=== PATIENT | female | born 1940 | race Caucasian/White ===

== ENCOUNTER 2018-03-10 14:53 | Outpatient (CLI) | payer MEDICARE ==
--- NOTE | 2018-03-10 15:50 | XRAY Report ---
Procedure Date: 03/10/2018 Accession Number: [id number] / [id number] Procedure: XRN - Abdomen 2 View X-Ray CPT Code: 20767 FULL RESULT: EXAM: ABDOMEN RADIOGRAPHY EXAM DATE: 03/10/2018 03:13 PM. CLINICAL HISTORY: Abdominal pain. Constipation. COMPARISON: None. TECHNIQUE: 2 views. FINDINGS: Lung Bases: Unremarkable. Bowel Gas Pattern: Within normal limits. No dilated loops or abnormal fluid levels. Mild stool retention. Free Air: None. Other: Dextroscoliosis and degenerative lumbar disk disease. Cholecystectomy clips noted. Vaginal ring noted. IMPRESSION: No bowel obstruction or free air. Mild stool retention. RADIA
== END 2018-03-10 14:54 | disposition home or self-care (01) ==
LOC: DI.N 14:53
PROVIDERS: ATTEND Nurse Practitioner
DX: R10.9 Unspecified abdominal pain (principal)
CPT/HCPCS: 74019

== ENCOUNTER 2018-03-28 07:46 | Emergency (ER) | payer MEDICARE, OTHER ==
[2018-03-28 08:12] VITALS: BP 145/96
[2018-03-28 08:44] LABS: BASOPHILS # (AUTO) 0.1 10^3/uL (0.0-0.1); BASOPHILS % (AUTO) 1.3 %; EOSINOPHILS # (AUTO) 0.2 10^3/uL (0.0-0.7); EOSINOPHILS % (AUTO) 3.1 %; HGB - HEMOGLOBIN 13.8 g/dL (12.0-16.0); LYMPHOCYTES % (AUTO) 12.8 %; MEAN CORPUSCULAR HEMOGLOBIN 27.3 pg (27.0-31.0); MEAN CORPUSCULAR HGB CONC 33.5 g/dL (32.0-36.0); MEAN CORPUSCULAR VOLUME 81.7 fL (81.0-99.0); MEAN PLATELET VOLUME 6.8 fL (7.9-10.8); MONOCYTES # (AUTO) 0.5 10^3/uL (0.0-1.0); MONOCYTES % (AUTO) 6.2 %; NEUTROPHILS # (AUTO) 6.2 10^3/uL (1.5-6.6); NEUTROPHILS % (AUTO) 76.6 %; PLT - PLATELET COUNT 180 10^3/uL (130-450); RED BLOOD COUNT 5.07 10^6/uL (4.20-5.40); RED CELL DISTRIBUTION WIDTH 14.8 % (12.0-15.0)
[2018-03-28 08:58] LABS: ALBUMIN 4.4 g/dL (3.2-5.5); ALBUMIN/GLOBULIN RATIO 1.7 (1.0-2.2); BILIRUBIN,TOTAL 0.8 mg/dL (0.2-1.0); CALCIUM 9.4 mg/dL (8.5-10.3); CREATININE 0.7 mg/dL (0.4-1.0)
--- NOTE | 2018-03-28 12:06 | ED Physician Documentation ---
PD HPI ABD PAIN - Stated complaint Stated Complaint: ABD PX - Chief complaint Chief Complaint: Abd Pain - History obtained from History obtained from: Patient, Family - History of Present Illness Timing - onset: How many weeks ago (4) Timing - duration: Weeks (4) Timing - details: Gradual onset Pain level max: 8 Pain level now: 8 Quality: Aching, Pain Location: All over / everywhere Radiation: No: Chest, , Lower back, Left flank, Left shoulder, Right flank, Right shoulder, Upper back Improved by: Other (nothing) Worsened by: Other (nothing) Associated symptoms: Nausea (occasional), Constipation (states feels constipated , but had diarrhea a few weeks ago. Still having normal bowel movement.). No: Fever, Vomiting, Hematemesis, Diarrhea, Melena, Hematochezia, Dysuria, Hematuria , Chest pain, Dizzy, Near syncope / syncope, Loss of appetite, Weight loss, Vaginal bleeding, Vaginal dc Recently seen: Clinic (seen in clinic, dx with constipation. states doesn't feel better.) Review of Systems Ten Systems: 10 systems reviewed and negative Constitutional: denies: Fever, Chills Ears: denies: Ear pain Nose: denies: Rhinorrhea / runny nose, Congestion Respiratory: denies: Cough GI: denies: Hematemesis, Bloody / black stool : denies: Dysuria Skin: denies: Rash Musculoskeletal: denies: Neck pain, Back pain Neurologic: denies: Headache PD PAST MEDICAL HISTORY - Past Medical History Past Medical History: Yes Cardiovascular: Hypertension - Past Surgical History Past Surgical History: No - Present Medications Home Medications: Ambulatory Orders Medication Instructions Recorded Confirmed Levothyroxine [Synthroid] 75 mcg PO DAILY 08/19/14 08/19/14 Losartan [Cozaar] 50 mg PO BID 08/19/14 08/19/14 Metoprolol Succinate [Toprol Xl] 50 mg PO BID 08/19/14 08/19/14 Cephalexin [Keflex] 500 mg PO Q6H #28 capsule 03/28/18 - Allergies Allergies/Adverse Reactions: Allergies Allergy/AdvReac Type Severity Reaction Status Date / Time chlorpromazine Allergy Mild Hives Verified 03/28/18 08:13 [From Thorazine] diazepam [From Valium] Allergy Mild Unknown Verified 03/28/18 08:13 haloperidol [From Haldol] Allergy Mild Unknown Verified 03/28/18 08:12 - Living Situation Living Situation: reports: With family Living Arrangement: reports: At home - Social History Does the pt smoke?: No Does the pt have substance abuse?: No - Family History Family history: reports: Non contributory PD ED PE NORMAL - Vitals Vital signs reviewed: Yes - General General: Alert and oriented X 3, No acute distress, Well developed/nourished - HEENT HEENT: PERRL, Moist mucous membranes - Neck Neck: Supple, no meningeal sign - Cardiac Cardiac: RRR, Strong equal pulses - Respiratory Respiratory: No respiratory distress, Clear bilaterally - Abdomen Abdomen: Soft, Non tender, Non distended - Back Back: No CVA TTP, No spinal TTP - Derm Derm: Warm and dry - Extremities Extremities: No edema, No calf tenderness / cord - Neuro Neuro: Alert and oriented X 3 - Psych Psych: Normal mood, Normal affect Results - Vitals Vitals: Vital Signs - 24 hr 03/28/18 08:07 Temperature 36.9 C Heart Rate 87 Respiratory 16 Rate Blood Pressure 145/96 H O2 Saturation 97 Oxygen O2 Source Room air - Labs Labs: Laboratory Tests 03/28/18 03/28/18 03/28/18 08:39 08:39 11:50 WBC 8.0 RBC 5.07 Hgb 13.8 Hct 41.4 MCV 81.7 MCH 27.3 MCHC 33.5 RDW 14.8 Plt Count 180 MPV 6.8 L Neut # (Auto) 6.2 Lymph # (Auto) 1.0 L [place] # (Auto) 0.5 Eos # (Auto) 0.2 Baso # (Auto) 0.1 Absolute Nucleated RBC 0.00 Nucleated RBC % 0.0 Sodium 136 Potassium 3.3 L Chloride 96 L Carbon Dioxide 31 Anion Gap 9.0 BUN 13 Creatinine 0.7 Estimated GFR (MDRD) 81 L Glucose 134 H Calcium 9.4 Total Bilirubin 0.8 AST 23 ALT 16 Alkaline Phosphatase 60 Total Protein 7.0 Albumin 4.4 Globulin 2.6 Albumin/Globulin Ratio 1.7 Lipase 36 Urine Color LIGHT YELLOW Urine Clarity HAZY Urine pH 7.0 Ur Specific [place] 1.010 Urine Protein TRACE Urine Glucose (UA) NEGATIVE Urine Ketones NEGATIVE Urine Occult Blood MODERATE H Urine Nitrite NEGATIVE Urine Bilirubin NEGATIVE Urine Urobilinogen 0.2 (NORMAL) Ur Leukocyte Esterase MODERATE H Urine RBC 0-5 Urine WBC >25 H Ur Squamous Epith Cells FEW Squamous Urine Bacteria Many H Ur Microscopic Review INDICATED Urine Culture Comments INDICATED - Rads (name of study) CT abd/pelvis Radiology: Prelim report reviewed, EMP read contemporaneously, See rad report ( Moderate bladder distention with possible mild diffuse bladder wall thickening. Cystitis could be considered in the appropriate clinical setting. 2. Colonic diverticulosis without evidence of diverticulitis. 3. Chronic and postoperative findings, as above. ) PD MEDICAL DECISION MAKING - ED course Complexity details: reviewed results, re-evaluated patient, considered differential, d/w patient, d/w family ED course: Patient is a 77-year-old female with abdominal pain today. No acute laboratory findings or findings on CT scan to explain her symptoms. She does have a UTI and will treat for this. She is well-appearing, nontoxic. Tolerating p.o. without difficulty. Ambulating well. Abdomen is soft, nontender nondistended on serial exam. Patient counseled regarding signs and symptoms for which I believe and urgent re-evaluation would be necessary. Patient with good understanding of and agreement to plan and is comfortable going home at this time This document was made in part using voice recognition software. While efforts are made to proofread this document, sound alike and grammatical errors may occur. - Sepsis Event Vital Signs: Vital Signs - 24 hr 03/28/18 08:07 Temperature 36.9 C Heart Rate 87 Respiratory 16 Rate Blood Pressure 145/96 H O2 Saturation 97 Oxygen O2 Source Room air Departure - Departure Disposition: 01 Home, Self Care Clinical Impression: Urinary tract infection Qualifiers: Urinary tract infection type: acute cystitis Hematuria presence: without hematuria Qualified Code(s): N30.00 - Acute cystitis without hematuria Condition: Good Instructions: ED Abdominal Pain Unkn Cause, ED UTI Cystitis Female Follow-Up: Rosy Betancourt DNP [Primary Care Provider] - Within 1 week Prescriptions: Cephalexin [Keflex] 500 mg PO Q6H #28 capsule Comments: Your tests are normal today, other than a bladder infection. Take all antibiotics until gone. Return if you worsen. Discharge Date/Time: 03/28/18 13:42
[2018-03-28] MEDS ORDERED: IOPAMIDOL-300 100 ML VIAL ONE (12:09)
[2018-03-28] MEDS ORDERED: IOPAMIDOL-300 100 ML VIAL IVP ONE (12:54)
[2018-03-28 12:59] LABS: BILIRUBIN,URINE NEGATIVE (NEGATIVE); GLUCOSE, URINE (UA) NEGATIVE (NEGATIVE); KETONES,URINE (UA) NEGATIVE (NEGATIVE); LEUKOCYTE ESTERASE, URINE MODERATE (NEGATIVE); NITRITE,URINE NEGATIVE (NEGATIVE); OCCULT BLOOD,URINE MODERATE (NEGATIVE); PROTEIN,URINE TRACE mg/dL (NEGATIVE); UROBILINOGEN,URINE 0.2 (NORMAL) E.U./dL (NORMAL)
[2018-03-28 13:00] LABS: CLARITY,URINE HAZY (CLEAR)
--- NOTE | 2018-03-28 13:01 | CT Report ---
Reason: diffuse abd pain Procedure Date: 03/28/2018 Accession Number: [id number] / [id number] Procedure: CT - Abdomen/Pelvis W/ CPT Code: FULL RESULT: EXAM: CT ABDOMEN AND PELVIS EXAM DATE: 03/28/2018 12:37 PM. CLINICAL HISTORY: Diffuse abd pain. COMPARISONS: None. TECHNIQUE: Routine helical CT imaging was performed through the abdomen and pelvis. IV contrast: ISOVUE 300 100mL. Enteric contrast: No. Reconstructions: Coronal and sagittal. In accordance with CT protocol optimization, one or more of the following dose reduction techniques were utilized for this exam: automated exposure control, adjustment of mA and/or KV based on patient size, or use of iterative reconstructive technique. FINDINGS: Lung Bases: Unremarkable. Minimal pericardial effusion. Liver: Normal. No masses. Gallbladder/Bile Ducts: Status post cholecystectomy. No ductal dilatation. Spleen: Normal. Pancreas: Normal. Adrenal Glands: Normal. Kidneys: 1.5 cm left renal cyst. Additional subcentimeter bilateral renal hypodensities likely represent cysts although they are too small to definitely characterize. No definite masses. No hydronephrosis, hydroureter or perinephric stranding. Peritoneal Cavity/Bowel: No free air, free fluid or chetan lymphadenopathy. The appendix is not clearly visualized but there are no findings suspicious for appendicitis. There is substantial colonic diverticulosis without evidence of diverticulitis. Pelvic Organs: Moderate bladder distention with the pattern of possible mild diffuse bladder wall thickening which could be chronic. Cystitis is not excluded. No mass or stones. The visualized pelvic organs otherwise are unremarkable. A pelvic pessary is present. Vasculature: No aneurysms or other significant abnormality. Bones: No definite acute abnormality. Dextroconvexity lumbar scoliosis and degenerative disease. Other: None. IMPRESSION: 1. Moderate bladder distention with possible mild diffuse bladder wall thickening. Cystitis could be considered in the appropriate clinical setting. 2. Colonic diverticulosis without evidence of diverticulitis. 3. Chronic and postoperative findings, as above. RADIA
[2018-03-28 13:10] LABS: RBC,URINE 0-5 /HPF (0-5); SQUAMOUS EPITHELIAL CELL,UR FEW Squamous (<= Few)
[2018-03-28 13:11] LABS: BACTERIA,URINE Many /HPF (None Seen)
== END 2018-03-28 13:42 | disposition home or self-care (01) ==
LOC: ED 07:46
DX: N30.00 Acute cystitis without hematuria (principal); R10.9 Unspecified abdominal pain; K57.30 Diverticulosis of large intestine without perforation or abscess without bleeding; I10 Essential (primary) hypertension
CPT/HCPCS: 36415; 74177; 80053; 81001; 83690; 85025; 87086; 87181; 99283; Q9967; 81003

== ENCOUNTER 2018-04-21 09:51 | Outpatient (CLI) | payer MEDICARE, OTHER ==
[2018-04-21] MEDS ORDERED: ALBUTEROL NEB 2.5 MG/3 ML INH ONE (12:00)
== END 2018-04-21 09:52 | disposition home or self-care (01) ==
LOC: RT 09:51
PROVIDERS: ATTEND Nurse Practitioner
DX: J45.30 Mild persistent asthma, uncomplicated (principal)
CPT/HCPCS: 94060

== ENCOUNTER 2025-06-06 20:44 | Inpatient (IN) ==
--- NOTE | 2025-06-06 20:53 | ED Physician Documentation ---
History of Present Illness Stated complaint Stated Complaint: RT SIDE WEAKNESS, SLURRED SPEECH Chief complaint Chief Complaint: Neuro History obtained from History obtained from: Patient Additonal information Additional information: 85yF with pmh htn, asthma p/w RUE and RLE weakness starting around 0048 today (a little after midnight last night) with waxing and waning severity. also with baseline slurred speech that may be worse today per ems. patient normally takes losartan 50mg in evenings but did not take tonight. denies cp, soa, n/v vision changes headache confusion. Meds/Allgy Home Medications Ambulatory Orders Medication Instructions Recorded Confirmed levothyroxine 75 mcg tablet 75 mcg PO DAILY 08/19/14 0 08/19/14 losartan 50 mg tablet 50 mg PO BID 08/19/14 metoprolol succinate 50 mg 50 mg PO BID 08/19/1408/19 tablet,extended release 24 hr cephalexin 500 mg capsule (Keflex) 500 mg PO Q6H ##28 03/28/18 albuterol sulfate .ROUTE 06/06/25 budesonide .ROUTE 06/06/25 Allergies Allergies Allergy/AdvReac Type Severity Reaction Status Date / Time chlorpromazine (From Allergy Mild Hives Verified 06/06/25 20:51 Thorazine) diazepam (From Valium) Allergy Mild Unknown Verified 06/06/25 20:51 haloperidol (From Haldol) Allergy Mild Unknown Verified 06/06/25 20:51 ciprofloxacin Allergy Unknown Verified 06/06/25 20:51 levofloxacin (From Levaquin) Allergy Unknown Verified 06/06/25 20:51 lisinopril Allergy Unknown Verified 06/06/25 20:51 naproxen Allergy unknown Verified 06/06/25 20:51 propoxyphene (From Darvon) Allergy unknown Verified 06/06/25 20:51 thioridazine (From Mellaril) Allergy unknown Verified 06/06/25 20:51 PFSH Active Problems All Active Problems (Updated 06/06/25 @ 21:09 by Yuliya Godfrey MD) HTN (hypertension) (Chronic) Acute CVA (cerebrovascular accident) (Acute) Urinary tract infection (Acute) Social History Social History Do you dip or chew tobacco?: No Living arrangement: At home Living Condition: With family How many days per week?: 3 Do you feel safe in your home environment?: Yes History of physical, verbal, emotional, or financial abuse?: No Exam Exam Vital Signs: Vital Signs x48h Temp Pulse Resp BP Pulse Ox 06/06/25 20:46 36.4 C L 92 20 211/153 H 95 Constitutional normal general appearance, no apparent distress and average body habitus elderly appearing HENMT normocephalic, head/scalp atraumatic and oropharynx normal Eyes PERRL and EOMs intact bilaterally Neck/C-Spine visual inspection normal Chest inspection of chest normal Respiratory breath sounds equal bilaterally, normal respiratory effort and clear to auscultation bilaterally Cardiovascular normal heart rate noted and regular rhythm noted Gastrointestinal abdomen normal to inspection, abdomen soft to palpation and nontender to palpation Neurology stock grader II-XII intact and GCS 15 RUE 1+ drift against gravity. RLE with significant drift to gravity. NIHSS 2 (RUE -1 , RLE -1 ) Psychiatry oriented x3 Results Vitals Vitals: Vital Signs - 24 hr 06/06/25 20:46 06/06/25 21:40 Temperature 36.4 C L Temperature Source Temporal Artery Scan Pulse Rate 92 Respiratory Rate 20 Blood Pressure 211/153 H O2 Saturation 95 Oxygen Delivery Method Room Air O2 Source Room air Pain Intensity 0 Oxygen O2 Source Room air EKG (time done) 2053: EKG releavant findings:: EKG personally interpreted by author of this note. Relevant findings are: Rate: Rate (enter#) (85) Rhythm: NSR [place]: Other (LAFB) Intervals: Prolonged RI (214) QRS: QRS normal Ischemia: No ST elevation c/w ischemia Labs Labs: Laboratory Tests 06/06/25 20:01 WBC 5.8 RBC 5.44 H Hgb 14.5 Hct 46.4 MCV 85.3 MCH 26.7 L MCHC 31.3 L RDW 13.2 Plt Count 204 MPV 9.4 Neut # (Auto) 3.8 Lymph # (Auto) 1.3 L [place] # (Auto) 0.4 Eos # (Auto) 0.2 Baso # (Auto) 0.0 Absolute Nucleated RBC 0.00 Nucleated RBC % 0.0 Sodium 138 Potassium 3.6 Chloride 102 Carbon Dioxide 28 Anion Gap 8.0 BUN 20 Creatinine 0.8 Estimated GFR (MDRD) 68 L Glucose 153 H Calcium 9.6 Total Bilirubin 0.8 AST 17 ALT 12 Alkaline Phosphatase 57 Total Protein 7.3 Albumin 4.6 Globulin 2.7 Albumin/Globulin Ratio 1.7 Lipase 19 PD Medical Decision Making ED course ED course: 85yF p/w RUE / RLE weakness starting a little after midnight this past evening, waxing/waning severity, now improved. no other objective neurological deficits. hypetensive on arrival. NIHSS 2. not a tenecteplase candidate given improving symptoms, low NIHSS and outside the 4.5 hour window. CTA undertaken to evaluate for LVO. likely will admit [facility] for MRI, telemetry, possible echo for stroke workup. d/w Dr. Dinero re: ct head no acute findings. 9:30pm. No LVO on CTA therefore plan to admit here for CVA workup including MRI in am. Discharge Plan Discharge Patient Disposition: 66 [facility] DC/Xfer Condition: Fair Clinical Impression: Acute CVA (cerebrovascular accident), HTN (hypertension) Prescriptions: No Action levothyroxine 75 MCG tablet 75 mcg PO DAILY metoprolol succinate 50 MG tablet extended release 24 hr 50 mg PO BID losartan 50 MG tablet 50 mg PO BID cephalexin [Keflex] 500 MG capsule 500 mg PO Q6H Qty: 28 0RF budesonide .ROUTE albuterol sulfate .ROUTE Print Language: Thai
[2025-06-06 21:08] LABS: HCT - HEMATOCRIT 46.4 % (37.0-47.0); HGB - HEMOGLOBIN 14.5 g/dL (12.0-16.0); MEAN PLATELET VOLUME 9.4 fL (7.9-10.8); NRBC ABSOLUTE COUNT (AUTO) 0.00 x10^3/uL; NUCLEATED RED BLOOD CELLS AUTO 0.0 /100WBC; PLT - PLATELET COUNT 204 10^3/uL (130-450); RED CELL DISTRIBUTION WIDTH 13.2 % (12.0-15.0)
[2025-06-06 21:24] LABS: ALT ALANINE AMINOTRANSFERASE 12.0 IU/L (10-60); AST ASPARTATE AMINOTRANSFERASE 17.0 IU/L (10-42); BUN - BLOOD UREA NITROGEN 20.0 mg/dL (6-20); CARBON DIOXIDE - CO2 28.0 mmol/L (21-32); CREATININE 0.8 mg/dL (0.6-1.3); GFR - MDRD 68.0 (>89)
--- NOTE | 2025-06-06 21:27 | XRAY Report ---
PROCEDURE: XR Chest 1V INDICATIONS: Chest Pain TECHNIQUE: One view of the chest was acquired. COMPARISON: None. FINDINGS: Surgical changes and devices: None. Lungs and pleura: No pleural effusions or pneumothorax. No consolidation. Mediastinum: Mediastinal contours appear normal. Heart size is normal. Bones and chest wall: No suspicious bony lesions. Overlying soft tissues appear unremarkable. IMPRESSION: No acute cardiopulmonary process. Reviewed by: Ashkan Sanchez MD on 06/06/2025 9:23 PM [facility] Approved by: Ashkan Sanchez MD on 06/06/2025 9:23 PM PST Station ID: [email or web address]
[2025-06-06] MEDS: LABETALOL 20 MG/4 ML SYRINGE IVP STA (21:28)
[2025-06-06] MEDS: SODIUM CHLORIDE 0.9% 500 ML IV ONE (21:30)
--- NOTE | 2025-06-06 21:33 | CT Report ---
PROCEDURE: CT Head W/O Stroke Protocol INDICATIONS: RUE/RLE weak TECHNIQUE: Noncontrast angled axial sections acquired from the foramen magnum to the vertex, with coronal reformats. For radiation dose reduction, the following was used: automated exposure control, adjustment of mA and/or kV according to patient size. COMPARISON: None. FINDINGS: Image quality: Diagnostic. CSF spaces: Basal cisterns are patent. No extra-axial fluid collections. Ventricles are normal in size and shape. Brain: No midline shift. No intracranial masses or hemorrhage. No mass effect. Yo-white matter interface is normal. There is moderate cerebral volume loss for age with resultant ventricular and sulcal prominence. There are moderate periventricular and deep white matter chronic small vessel ischemic changes. Atherosclerotic calcifications are noted in the intracranial segments of the bilateral internal carotid arteries. Skull and face: Calvarium and visualized facial bones are intact, without suspicious lesions. Sinuses: Scattered ethmoid and bilateral maxillary sinus mucosal thickening. Mastoid air cells are clear. IMPRESSION: No acute intracranial abnormality seen. Moderate age-related senescent changes and sequela of chronic small vessel ischemic disease. Scattered ethmoid and bilateral maxillary sinus disease. Findings were discussed with ordering provider (Dr. Godfrey) on 06/06/2025 at 2127 hours. This study fulfills neurological imaging criteria for inclusion or exclusion of acute stroke therapies based on available published neurological imaging guidelines. Reviewed by: Ashkan Dinero MD on 06/06/2025 9:30 PM PST Approved by: Ashkan Dineor MD on 06/06/2025 9:30 PM PST Station ID: [email or web address]
--- NOTE | 2025-06-06 21:39 | CT Report ---
PROCEDURE: CT Angio Head/Neck INDICATIONS: RUE/RLE weak X several hours CONTRAST: omni 300, 80ml TECHNIQUE: After the administration of intravenous contrast, images were acquired from the aortic arch through the [place] of [place]. 3-dimensional zwdaqkz-yaqcuywua-wptomerdra (MIP) and volume rendering reformats were acquired of the central intracranial vasculature and neck separately. COMPARISON: CT head from same day. FINDINGS: Image quality: Diagnostic. Cerebral CT Angiogram: Internal carotid arteries: Atherosclerotic calcifications of the intracranial internal carotid arteries bilaterally. No acute findings. Intracranial ICA are patent with no significant stenosis. No occlusion. No aneurysm. Anterior cerebral arteries: Unremarkable. No significant stenosis. No occlusion. No aneurysm. Middle cerebral arteries: Unremarkable. No significant stenosis. No occlusion. No aneurysm. Posterior cerebral arteries: Unremarkable. No significant stenosis. No occlusion. No aneurysm. Basilar artery: Unremarkable. No significant stenosis. No occlusion. No aneurysm. Vertebral arteries: Unremarkable as visualized. Dural venous sinuses: Unremarkable given phase of enhancement. Other: Arterial phase appearance of the brain parenchyma is unremarkable. Neck CT Angiogram: Internal carotid arteries: Unremarkable. No significant stenosis. No dissection or occlusion. Common carotid arteries: Atherosclerotic calcifications of the bilateral carotid bifurcations. Unremarkable. No significant stenosis. No dissection or occlusion. External carotid arteries: Unremarkable. No occlusion. Vertebral arteries: Unremarkable. No significant stenosis. No dissection or occlusion. Aortic Arch and Mediastinum: Partially visualized aortic arch unremarkable without evidence of aneurysm. Origins of the great vessels unremarkable. Other: Arterial phase soft tissues of the neck and chest are unremarkable. No acute compression fractures of the cervical spine. Normal alignment. Multilevel cervical spondylosis. Lung apices are clear. No suspicious soft tissue masses or adenopathy. IMPRESSION: No significant intracranial arterial abnormalities are seen. No hemodynamically significant stenosis can be seen within the arteries of the neck. If there is persistent high clinical concern for acute cerebral infarction, further evaluation with MRI can be considered. The estimate of stenosis included in the report of the imaging study was calculated using the NASCET method Reviewed by: Ashkan Dinero MD on 06/06/2025 9:36 PM PST Approved by: Ashkan Dinero MD on 06/06/2025 9:36 PM PST Station ID: [email or web address]
[2025-06-06] MEDS: ASPIRIN CHEW 81 MG TABLET PO STA (22:34)
--- NOTE | 2025-06-06 23:21 | HISTORY & PHYSICAL EXAMINATION ---
Chief Complaint Chief Complaint Chief Complaint: right sided weakness History of Present Illness History Obtained From History obtained from: patient, ED physician Exam Limitations: telemedicine History of Present Illness HPI Comment/Other: Mrs. Murphy is a pleasant 85yoF with a history of copd, asthma, hypertension and hypothyroidism copd, asthma, hypertension and hypothyroidism. she presented to the ED with right sided weakness of her upper and lower extremity. She first noticed her symptoms the night prior to presentation. Her weakness progress until she was unable to write and she was dragging her right leg. She currently has no feeling on the affected side. she did not experience facialy droop or slurring of speech. In the Ed workup was negative. she was hypertensive with systolic blood pressure in the 200s. This visit was performed using telehealth tools, including phone and live-video. patient provided verbal consent to complete this telemedicine encounter. During the time my interview and evaluation, the patient was located at [facility] in the [facility], I was located in [place]. Review of Systems Status of ROS: 10 or more systems reviewed and unremarkable except as noted in history and below PFSH Active Problems All Active Problems (Updated 06/06/25 @ 23:16 by Aleena Salcido MD) Hypothyroidism (Chronic) COPD (chronic obstructive pulmonary disease) (Chronic) HTN (hypertension) (Chronic) Acute CVA (cerebrovascular accident) (Acute) Urinary tract infection (Acute) Social History Social History Smoking Status: Never smoker Do you dip or chew tobacco?: No Living arrangement: At home Living Condition: With family How many days per week?: 3 Do you feel safe in your home environment?: Yes History of physical, verbal, emotional, or financial abuse?: No Meds/Allgy Home Medications Ambulatory Orders Medication Instructions Recorded Confirmed levothyroxine 75 mcg tablet 75 mcg PO DAILY 08/19/14 0 08/19/14 losartan 50 mg tablet 50 mg PO BID 08/19/14 metoprolol succinate 50 mg 50 mg PO BID 08/19/1408/19 tablet,extended release 24 hr cephalexin 500 mg capsule (Keflex) 500 mg PO Q6H ##28 03/28/18 albuterol sulfate .ROUTE 06/06/25 budesonide .ROUTE 06/06/25 Allergies Allergies Allergy/AdvReac Type Severity Reaction Status Date / Time chlorpromazine (From Allergy Mild Hives Verified 06/06/25 20:51 Thorazine) diazepam (From Valium) Allergy Mild Unknown Verified 06/06/25 20:51 haloperidol (From Haldol) Allergy Mild Unknown Verified 06/06/25 20:51 ciprofloxacin Allergy Unknown Verified 06/06/25 20:51 levofloxacin (From Levaquin) Allergy Unknown Verified 06/06/25 20:51 lisinopril Allergy Unknown Verified 06/06/25 20:51 naproxen Allergy unknown Verified 06/06/25 20:51 propoxyphene (From Darvon) Allergy unknown Verified 06/06/25 20:51 thioridazine (From Mellaril) Allergy unknown Verified 06/06/25 20:51 Exam Exam Vital Signs: Vital Signs x48h Temp Pulse Resp BP Pulse Ox 06/06/25 20:46 36.4 C L 92 20 211/153 H 95 Examination as recorded is based on patient and staff reported information as well as peripheral observation. Constitutional normal general appearance and no apparent distress Cardiovascular normal heart rate noted and regular rhythm noted Extremities no tenderness and abnormal ROM noted Neurology advanced practice registered nurse II-XII intact, focal motor deficit noted, gait abnormality noted, speech normal and GCS 15 NIHSS: 2 - can move both Right upper and lower extremity against gravity; drift noted Conclusion/Plan Problem List (1) Acute CVA (cerebrovascular accident): Plan: -CT and CTA head reviewed without contrast. No acute intracranial abnormality noted -not a tpa candidate, out of timeframe -will followup with MRI head and carotid dopplers, - will add aspirin -check lipid panel, add statin -obtain echo with bubble study -monitor on telemetry -permissive hypertension x 24hours (2) HTN (hypertension): Plan: home medication reviewed. will resume home regimen of losartan adn metoprolol -conservative management of bloodpressure: permissive hypertension 210/110 (3) COPD (chronic obstructive pulmonary disease): Plan: home medication reviewed -will resume inhaler budesinide -duonebs as needed for wheezing and shorntess of breath (4) Hypothyroidism: Plan: home medication reviewed -will resume levothyroxine Plan Patient will be admitted to the hospitalist service under outpatient-observation status. less than 2 midnights expected for management. Lab Results 06/06/25 20:01 06/06/25 20:01 Core Measures Anticipated LOS I expect patient to be DC'd or transferred within 96 hours.: Yes DVT/VTE - Prophylaxis VTE/DVT Device ordered at admit?: Yes Telemedicine Consult Details Provider Location & Consult Time Telemedicine consultation conducted via videoconferencing?: Yes
[2025-06-07] MEDS ORDERED: SODIUM CHLORIDE FLUSH 0.9% 10 ML SYRINGE IVP PRN (00:08)
[2025-06-07] MEDS ORDERED: ONDANSETRON ODT 4 MG TABLET TL PRN (00:08)
[2025-06-07] MEDS ORDERED: ACETAMINOPHEN 325 MG TABLET PO PRN (00:08)
[2025-06-07] MEDS: LOSARTAN 50 MG TABLET PO SCH ×2 (00:38→20:15)
[2025-06-07] MEDS: SODIUM CHLORIDE FLUSH 0.9% 10 ML SYRINGE IVP SCH (00:38)
[2025-06-07 06:13] LABS: HCT - HEMATOCRIT 42.1 % (37.0-47.0); HGB - HEMOGLOBIN 13.6 g/dL (12.0-16.0); MEAN PLATELET VOLUME 9.5 fL (7.9-10.8); NRBC ABSOLUTE COUNT (AUTO) 0.00 x10^3/uL; NUCLEATED RED BLOOD CELLS AUTO 0.0 /100WBC; PLT - PLATELET COUNT 198 10^3/uL (130-450); RED CELL DISTRIBUTION WIDTH 13.2 % (12.0-15.0)
[2025-06-07 06:28] LABS: INR 1.1 (0.8-1.2); PT - PROTHROMBIN TIME 12.4 secs (9.9-12.6)
[2025-06-07 06:34] LABS: ALT ALANINE AMINOTRANSFERASE 11.0 IU/L (10-60); AST ASPARTATE AMINOTRANSFERASE 16.0 IU/L (10-42); BUN - BLOOD UREA NITROGEN 16.0 mg/dL (6-20); CARBON DIOXIDE - CO2 26.0 mmol/L (21-32); CREATININE 0.6 mg/dL (0.6-1.3); GFR - MDRD 95.0 (>89)
[2025-06-07] MEDS: LEVOTHYROXINE 75 MCG TABLET PO SCH (08:39)
[2025-06-07] MEDS: METOPROLOL SUCCINATE 50 MG TABLET PO SCH (08:39)
[2025-06-07] MEDS: HEPARIN 5,000 UNIT/ML VIAL SUBQ SCH (08:40)
[2025-06-07] MEDS: NYSTATIN POWDER 15 GM TOP SCH (09:38)
[2025-06-07] MEDS: POTASSIUM CHLOR 10 MEQ/100 ML 10 MEQ/100 ML BAG IV SCH (09:38)
--- NOTE | 2025-06-07 10:20 | PROVIDER PROGRESS NOTE ---
Subjective Prog Note Date Prog Note Date: 06/07/25 Subjective Subjective: She has not noted any change in her symptoms, remains with right sided weakness. She is also having garbled speech. She tells me that she does not understand why she has these deficits, but is not having any problem with her mentation. Linda is right handed. She lives with her , who is 71 and still works inspector [employer]. I spoke with her daughter Jennifer, who last saw her in early March. At that time, she was overall doing well. Jennifer noted that she had fear of falling, but was actually quite steady on her feet. Current Medications Current Medications Current Medications: Current Medications Generic Name Dose Route Start Last Admin Trade Name Freq PRN Reason Stop Dose Admin Acetaminophen 650 mg 06/07/25 00:08 Acetaminophen 325 Mg Tablet PO Q4HR PRN Pain 1 to 4, or Fever Atorvastatin Calcium 80 mg 06/07/25 21:00 Atorvastatin 40 Mg Tablet PO QPM SILVA Heparin Sodium (Porcine) 5,000 unit 06/07/25 09:00 06/07/25 08:40 Heparin 5,000 Unit/Ml Vial SUBQ 5,000 unit BID SILVA Administration Potassium Chloride 10 meq in 100 mls @ 100 mls/hr 06/07/25 09:00 06/07/25 09:38 Potassium Chloride IV 06/07/25 12:59 100 mls/hr Q1H SILVA Administration Labetalol HCl 10 mg 06/07/25 00:08 Labetalol 20 Mg/4 Ml Syringe IVP Q6H PRN SBP >220 OR DBP>120 Levothyroxine Sodium 75 mcg 06/07/25 09:02 Levothyroxine 75 Mcg Tablet PO 0700 SILVA Losartan Potassium 50 mg 06/07/25 09:02 Losartan 50 Mg Tablet PO 2000 SILVA Metoprolol Succinate 50 mg 06/07/25 09:00 06/07/25 08:39 Metoprolol Succinate 50 Mg Tablet PO 50 mg BID SILVA Administration Nystatin 1 applic 06/07/25 09:00 06/07/25 09:38 Nystatin Powder 15 Gm TOP 1 applic BID SILVA Administration Ondansetron HCl 4 mg 06/07/25 00:08 Ondansetron Odt 4 Mg Tablet TL Q6HR PRN Nausea / Vomiting Sodium Chloride 10 ml 06/07/25 00:08 Sodium Chloride Flush 0.9% 10 Ml Syringe IVP PRN PRN NEEDED PER PROVIDER ORDERS Sodium Chloride 10 ml 06/07/25 01:00 06/07/25 08:39 Sodium Chloride Flush 0.9% 10 Ml Syringe IVP 10 ml 0100,0900,1700 [facility] Administration Objective Vital Signs/Intake & Output Reviewed Vital Signs: Yes Vital Signs: Vital Signs x48h Temp Pulse Resp BP BP Pulse Ox 06/07/25 08:48 36.7 C 71 18 167/96 H 98 06/07/25 05:59 36.5 C 67 12 187/109 H 97 06/07/25 02:24 36.5 C 67 20 147/93 H 96 Intake & Output: Intake & Output 06/04/25 06/05/25 06/06/25 06/07/25 23:59 23:59 23:59 23:59 Intake Total 550 / 550 Output Total 450 / 450 Balance 100 / 100 Weight (kg) 73.6 kg 71 kg Objective General Appearance: positive No acute distress, Alert and Other (she is very loquacious and has an excellent memory. ) Eyes Bilateral: positive Normal inspection and Conjunctivae nml ENT: positive Other (slight flattening of the right nasolabial fold. ) Neck: positive Nml inspection Respiratory: positive No respiratory distress and Breath sounds nml Cardiovascular: positive Regular rate & rhythm and Other (telemetry strips do not show a fib. ) Abdomen: positive No distention Skin: positive Color nml Extremities: positive No pedal edema Neurologic/Psychiatric: positive Oriented x3, Sensation nml (right sided numbness. ) and Sensory loss (rUE and RLE); negative Motor nml (right sided weakness in RUE and RLE. she is antigravity on the RUE ,with significant drift, she is not antigrav on RLE (2/5)) Lab Results 06/07/25 05:50 06/07/25 05:50 Other Labs: Lab Results x24hrs 06/07/25 06/06/25 Range/Units 05:50 20:01 WBC 5.6 5.8 (4.8-10.8) x10^3/uL RBC 4.99 5.44 H (4.20-5.40) 10^6/uL Hgb 13.6 14.5 (12.0-16.0) g/dL Hct 42.1 46.4 (37.0-47.0) % MCV 84.4 85.3 (81.0-99.0) fL MCH 27.3 26.7 L (27.0-31.0) pg MCHC 32.3 31.3 L (32.0-36.0) g/dL RDW 13.2 13.2 (12.0-15.0) % Plt Count 198 204 (130-450) 10^3/uL MPV 9.5 9.4 (7.9-10.8) fL Neut # (Auto) 3.6 3.8 (1.5-6.6) 10^3/uL Lymph # (Auto) 1.2 L 1.3 L (1.5-3.5) 10^3/uL [place] # (Auto) 0.5 0.4 (0.0-1.0) 10^3/uL Eos # (Auto) 0.1 0.2 (0.0-0.7) 10^3/uL Baso # (Auto) 0.0 0.0 (0.0-0.1) 10^3/uL Absolute Nucleated RBC 0.00 0.00 x10^3/uL Nucleated RBC % 0.0 0.0 /100WBC PT 12.4 (9.9-12.6) secs INR 1.1 (0.8-1.2) APTT 26.9 (24.9-33.3) secs Sodium 139 138 (135-145) mmol/L Potassium 3.3 L 3.6 (3.5-4.5) mmol/L Chloride 105 102 (101-111) mmol/L Carbon Dioxide 26 28 (21-32) mmol/L Anion Gap 8.0 8.0 (6-13) BUN 16 20 (6-20) mg/dL Creatinine 0.6 0.8 (0.6-1.3) mg/dL Estimated GFR (MDRD) 95 68 L (>89) Glucose 139 H 153 H (74-104) mg/dL Calcium 9.1 9.6 (8.5-10.3) mg/dL Total Bilirubin 0.9 0.8 (0.2-1.0) mg/dL AST 16 17 (10-42) IU/L ALT 11 12 (10-60) IU/L Alkaline Phosphatase 51 57 (42-121) IU/L Total Protein 6.4 7.3 (6.4-8.9) g/dL Albumin 4.1 4.6 (3.2-5.5) g/dL Globulin 2.3 2.7 (2.1-4.2) g/dL Albumin/Globulin Ratio 1.8 1.7 (1.0-2.2) Lipase 19 (11-82) U/L Assessment/Plan Problem List (1) Acute CVA (cerebrovascular accident): Impression: Persistent right sided weakness and dysarthria. I will start her on Lipitor 40mg daily. I will start her on ASA 81mg daily. Echo done by not yet read. MRI done at mid day. MRI shows:. Moderate size acute infarct in the left deep frontal white matter extending to the internal capsule. This patient needs monitoring with neurochecks as she is at risk for hemorrhagic conversion, continue telemetry, follow-up on her echocardiogram result.. PT evaluation is pending at this time. eval by ST today. She is having some pocketing on the right side, but is already developing compensatory mechanisms. She also has some dysarthria, will need post hospital ST for swallow and speech. Called patient's daughter Jennifer, per patient request. I will update Jennifer daily. (2) Hypokalemia: Impression: 06/06/25 06/07/25 20:01 05:50 Potassium 3.6 3.3 L repleted this AM. I have ordered repeat BMP for the AM (3) HTN (hypertension): Impression: Home medication of Losartan 50mg daily and metoprolol succinate 50mg BID have been restarted. Permissive hypertension to 220 for first 48 hours, will de escalate She seems to be coming down on her own. She does have order for labetalol PRN SBP>220 06/06/25 20:46 06/06/25 22:49 06/06/25 23:55 Pulse Rate 92 87 87 Pulse Rate [Brachial] Blood Pressure 211/153 H 182/109 H 180/87 H Blood Pressure [Left Brachial artery] Blood Pressure [Right Brachial artery] 06/07/25 00:10 06/07/25 02:24 06/07/25 05:59 Pulse Rate Pulse Rate [Brachial] 70 67 67 Blood Pressure Blood Pressure [Left Brachial artery] 187/109 H Blood Pressure [Right Brachial artery] 202/113 H 147/93 H 06/07/25 08:48 Pulse Rate Pulse Rate [Brachial] 71 Blood Pressure Blood Pressure [Left Brachial artery] 167/96 H Blood Pressure [Right Brachial artery] (4) COPD (chronic obstructive pulmonary disease): Impression: She is insistent that she take her own home inhalers. She states that she is allergic to other inhalers, anaphylaxis, and she is not sure which ones and why. discussed with pharmacist. Her lungs are clear, and she is not having any cough. (5) Hypothyroidism: Impression: synthroid 75mcg restarted. I will check TSH with AM labs. Dispo: need to gather more information, but I think it is likely that this patient may require SNF for rehab. I am converting her to inpatient status today given the finding of acute CVA on MRI. This patient's diagnosis and treatment plan was discussed this AM with attending physician as a part of multi disciplinary rounding meeting. I have spent 52 minutes in the care of this patient today. This includes time [id number], review and ordering of diagnostic imaging and laboratory studies . Monitoring the patient's signs symptoms, evaluation of medication effectiveness and patient's response to treatment.
--- NOTE | 2025-06-07 12:05 | PHARMACY PROGRESS NOTE ---
Best Possible Medication History Admit Date and Time: 06/06/25 2230 Home Medications Medication Instructions Recorded Confirmed Type levothyroxine 75 mcg tablet 75 mcg PO DAILY 08/19/14 1 08/07/24 History losartan 50 mg tablet 50 mg PO DAILY 08/19/1405/25 History albuterol sulfate 90 mcg/actuation 2 inh inhalation .q 4-h PRN 06/07/25 06/07/25 History aerosol inhaler shortness of breath or wheez ing budesonide-formoterol HFA 80 2 puff inhalation BID 06/07/25 History mcg-4.5 mcg/actuation aerosol inhaler chlorthalidone 25 mg tablet 25 mg PO DAILY 06/07/25 History metformin 500 mg tablet 500 mg PO BID 06/07/2506/07 History metoprolol tartrate 50 mg tablet 50 mg PO BID 06/07/25 06/07/25 History (Lopressor) simvastatin 40 mg tablet (Zocor) 40 mg PO QPM 06/07/25 06/07/25 History Processed by: Pharmacy Medications reviewed in ED?: Yes Medication History completed: Yes Patient Interview: Completed Secondary Source(s): Insurance records [facility] Statement: As the person ultimately responsible for medication therapy, providers are able to order a medication from an existing home medication list in [facility] via the "Reconcile Routine" prior to Confirmation of that medication by network support administrator. Such practice is discouraged except when the physician, in their clinical judgment, deems that a medical need exists for a medication without regard to previous use.
--- NOTE | 2025-06-07 12:17 | MRI Report ---
PROCEDURE: MRI Brain WO INDICATIONS: stroke evalution TECHNIQUE: Multisequence MRI of the brain was performed without intravenous contrast. COMPARISON: 06/06/2025 CTs FINDINGS: image quality: Diagnostic CSF spaces: Basal cisterns are patent. Lateral ventricles are symmetric. Volume: Periventricular white matter signal abnormality is commonly seen with chronic microangiopathy. Volume loss is present. These findings are mild to moderate. Brain: Moderate region of acute diffusion restriction seen in the left deep frontal white matter extending to the internal capsule. No acute hemorrhage. Craniofacial structures: Mild to moderate mucosal thickening. Small mastoid effusions. IMPRESSION: Moderate size acute infarct in the left deep frontal white matter extending to the internal capsule. No acute hemorrhage. Reviewed by: Jose Reynolds MD on 06/07/2025 12:14 PM PST Approved by: Jose Reynolds MD on 06/07/2025 12:14 PM PST Station ID: [id number]
[2025-06-07] MEDS: LABETALOL 20 MG/4 ML SYRINGE IVP PRN (12:25)
--- NOTE | 2025-06-07 15:02 | PT Plan of Care ---
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 MRI positive for L deep frontal white and internal capsule infarct. Pt presenting with R facial, UE, trunk and RLE deficits. Cleared for eval by hospitalist, please see medical record for further details. Upon PT eval, pt denies significant pain, A&Ox3-4, tangential and easily distracted but pt states this is baseline. Agrees to participate. Notable R facial droop with intermittently garbled speech. RUE > RLE deficits with gross strength 2-/5. RUE shoulder elevation actively 30deg, passi vely 110deg. No shoulder pain nor subluxation noted. R trunk lean in seated, able to correct with mod multimodal cueing but unable to maintain d/t weakness. STS and SPT with FWW and modAx2. Unable to participate in functional gait training and d/t R sided deficits, will benefit from gait inside sales trainer and/or bracing for RLE. Overall high fall risk given R sided deficits. Pt will benefit from continued skilled PT in acute setting to progress functional mobility and gait training. When medically clear, PT rec dc to [facility] as pt has need for all 3 disciplines and can tolerate 3hrs daily rehab. Goals Improve bed mobility to: Contact Guard Improve supine to sit to: Contact Guard Improve sit to stand to: Minimal Assist Improve pivot transfer ability Minimal Assist to: Improve sit to supine to: Contact Guard Improve gait ability to: Min A Other gait goal: least restrictive AD, FWW vs hemiwalker vs quad cane Improve Sitting Balance to: Good Improve Standing Balance to: Fair PT Plan of Care Frequency 1-2x/day Duration Until discharge Discharge Recommendations Discharge Location [facility] Other TBD Transport Needs at Discharge wc van vs BLS (distance)
--- NOTE | 2025-06-07 16:58 | Speech Therapy Plan of Care ---
DIAGNOSIS Date of Service Date of Service: 06/07/25 Diagnosis: ACUTE CEREBROVASCULAR ACCIDENT Onset Date: 06/07/25 SPEECH ASSESSMENT Assessment: Pt with hx of HTN and COPD. Acute onset RUE and RLE weakness. Baseline slurred speech reported worse today per Pt. See chart for full past medical history. MRI scheduled later today. Evaluation: Alertness/Orientation: Patient alert and oriented x4. Seen at breakfast with regular diet and thin liquids. Speech: Moderate dysarthria, worse than baseline; rapid speech noted, patient attributes speed to being from [place]. Oral-motor exam: Right-sided labial weakness, reduced oral sensation, decreased tongue retraction and ROM. Dentition poor with missing molars. Oral trials: Scrambled eggs, toast, oatmeal, sips of orange juice and water: Labial escape of liquids and some solids; straw sips tolerated better. Buccal pocketing in R sulci; patient unable to clear with tongue or subsequent sips. Cued to manually remove bolus. No coughing observed. Silent aspiration cannot be ruled out, but not suspected. Impression: Oral dysphagia: Moderate, characterized by impaired labial closure, buccal pocketing, and reduced oral clearance. Dysarthria: Moderate, slurred and rapid speech. Plan/Recommendations: Change diet to soft, bite-sized foods with thin liquids. Safe swallow precautions: assist as needed at meals, oral cavity checks at end of meal by RN/staff for pocketing, aggressive oral care. Speech strategies: slow rate of speech, over-articulate. Recommend inpatient rehab speech therapy. Will continue to follow throughout hospital stay. SPEECH SHORT TERM GOALS dysphagia: ST short term goal: Patient will safely consume the least restrictive diet and liquid level, as determined by ongoing swallow assessment, without overt s/s aspiration or pulmonary compromise, in order to maintain adequate nutrition and hydration Goal start date: 06/07/25 Goal achieve by date: 07/07/25 Goal status: New Dysarthria: ST short term goal: Pt will implement clear speech strategies to improve intelligibility at the conversational level with 80% accuracy Goal start date: 06/07/25 Goal achieve by date: 07/07/25 Goal status: New SPEECH PLAN OF CARE Treatment Frequency: 2-5 week Treatment Duration: until d/c
[2025-06-07] MEDS: ALBUTEROL NEB 2.5 MG/3 ML INH PRN (18:09)
[2025-06-07] MEDS: ATORVASTATIN 40 MG TABLET PO SCH (20:15)
--- NOTE | 2025-06-07 21:29 | ECHO Report ---
Version: 1 Study ID: [id number] [id number] Adult Echocardiogram Report Name: CHRIS SAEED Study Date: 06/07/2025, 8: 01 AM BP: 187 / 109 mmHg Patient Location: ^2204^01 HR: 69 bpm : 1940 (MM/DD/YYYY) Gender: Female Height: 61 in Age: 85 Years Weight: 162 lb BSA: 1.73 m² Reason For Study: stroke evaluation History: Saline contrast Bubble study. No previous study. Interpretation Summary There is mild asymmetric septal hypertrophy. Global left ventricular systolic function is normal. The calculated ejection fraction, as determined by the biplane method of disks, is 64%. The right ventricle is normal in size and function. Saline contrast Bubble study is negative with/with out Valsalva, for Atrial septal shunt. No concerning cardiac valve disease is noted. Left Ventricle: The left ventricle is normal in size. There is mild asymmetric septal hypertrophy. No thrombus seen in the left ventricle. The calculated ejection fraction, as determined by the biplane method of disks, is 64%. Global left ventricular systolic function is normal. The overall diastolic pattern is most consistent with impaired left ventricular relaxation with low to normal filling pressures. Right Ventricle: The right ventricle is normal in size and function. TAPSE is consistent with normal right ventricular function. The tricuspid annular plane systolic excursion (TAPSE) measurement is 2.2 cm. Aortic Valve: The aortic valve is normal in structure and function. The aortic valve is trileaflet. No hemodynamically significant valvular aortic stenosis. No aortic regurgitation is present. Mitral Valve: The mitral valve is visually normal in structure and function. No evidence of mitral stenosis is seen. There is trace mitral regurgitation. Tricuspid Valve: The tricuspid valve is normal in structure and function. There is no tricuspid stenosis. Mild tricuspid regurgitation present. Pulmonic Valve: The pulmonic valve is normal in structure and function. There is no pulmonic valvular stenosis. Trace pulmonic valvular regurgitation is present. Left Atrium: The left atrial size is normal. Right Atrium: Right atrial size is normal. The inferior vena cava appears normal. Atrial Septum: The interatrial septum appears normal, without evidence of shunt by 2D imaging and color Doppler. Saline contrast Bubble study is negative with/with out Valsalva, for Atrial septal shunt. Aorta: The ascending aorta is upper limits of normal. The diameter of the ascending aorta is 3.7 cm. The transverse arch is normal in size. The sinuses of Valsalva are normal in size. Pulmonary Artery: The pulmonary artery is normal size. The pulmonary artery systolic pressure is normal. Inferior vena cava dynamics indicate normal right atrial pressures. The right ventricular systolic pressure is 30mmHg. Pericardium/Pleural Space: There is no pericardial effusion. Left Ventricle IVSd: 1.23 cm LVIDd: 4.0 cm LVPWd: 0.82 cm LVIDs: 2.7 cm EDV(MOD-sp4): 63.2 ml LVLd ap4: 7.9 cm ESV(MOD-sp4): 31.6 ml ESV(sp4-el): 32.7 ml LVLs ap4: 6.5 cm EDV(MOD-sp2): 60.2 ml ESV(MOD-sp2): 29.1 ml Right Ventricle TAPSE: 2.19 cm RV S Willy: 13.4 cm/sec Atria LA dimension: 4.0 cm LAV(MOD-sp4): 37.7 ml LAV(MOD-sp2): 35.9 ml Diastolic Function MV dec time: 0.35 sec MV E max willy: 65.4 cm/sec MV A max willy: 100.2 cm/sec Aortic Valve LVOT diam: 1.81 cm LV V1 mean P.07 mmHg LV V1 mean: 67.6 cm/sec LV V1 VTI: 23.0 cm Ao V2 VTI: 34.1 cm Ao mean P.6 mmHg Ao V2 mean: 110.0 cm/sec LV V1 max: 92.8 cm/sec LV V1 max P.4 mmHg Ao max P.8 mmHg Ao V2 max: 156.2 cm/sec Mitral Valve MV max P.0 mmHg MV V2 max: 100.4 cm/sec MV mean P.14 mmHg MV V2 mean: 71.0 cm/sec MV V2 VTI: 21.3 cm Tricuspid Valve TR max P.5 mmHg TR max willy: 257.4 cm/sec TV max P.5 mmHg Aorta Ao root diam: 3.4 cm MMode/2D Measurements & Calculations Ao root diam: 3.4 cm BMI: 30.6 kilograms/m² BSA([facility]): 1.81 m² EDV(MOD-sp2): 60.2 ml EDV(MOD-sp4): 63.2 ml ESV(MOD-sp2): 29.1 ml ESV(MOD-sp4): 31.6 ml ESV(sp4-el): 32.7 ml IVSd: 1.23 cm LA A4C-A/L: 11.8 cm² LA dimension: 4.0 cm LA ESV-A/L: 29.0 ml LA Vol Index: 34.1 ml/m² LAV(MOD-sp2): 35.9 ml LAV(MOD-sp4): 37.7 ml LVIDd: 4.0 cm LVIDs: 2.7 cm LVLd ap4: 7.9 cm LVLs ap4: 6.5 cm LVOT diam: 1.81 cm LVPWd: 0.82 cm RA A4Cs: 14.8 cm² TAPSE: 2.19 cm Doppler Measurements & Calculations Ao max P.8 mmHg Ao mean P.6 mmHg Ao V2 max: 156.2 cm/sec Ao V2 mean: 110.0 cm/sec Ao V2 VTI: 34.1 cm Lat E/e': 11.0 LV V1 max: 92.8 cm/sec LV V1 max P.4 mmHg LV V1 mean: 67.6 cm/sec LV V1 mean P.07 mmHg LV V1 VTI: 23.0 cm Med E/e': 18.7 MV A max willy: 100.2 cm/sec MV dec time: 0.35 sec MV DVI-pr: 0.65 MV E max willy: 65.4 cm/sec MV max P.0 mmHg MV mean P.14 mmHg MV V2 max: 100.4 cm/sec MV V2 mean: 71.0 cm/sec MV V2 VTI: 21.3 cm PA max P.3 mmHg PA V2 max: 104.1 cm/sec RV S Willy: 13.4 cm/sec TR max P.5 mmHg TR max willy: 257.4 cm/sec TV max P.5 mmHg Other Measurements & Calculations Ao root area: 9.3 cm² ROSA(I,D): 1.73 cm² ROSA(V,D): 1.53 cm² EDV(Teich): 71.6 ml EF(MOD-sp2): 51.7 % EF(MOD-sp4): 50.0 % EF(sp-el): 56.3 % EF(Teich): 62.0 % ESV(Teich): 27.2 ml FS: 33.0 % LVOT area: 2.6 cm² MV E/A: 0.65 MVA(VTI): 2.8 cm² SV(LVOT): 59.1 ml SV(MOD-sp4): 31.6 ml MD Marily Saleem 06/07/2025, 9: 29 PM Ordering Physician: Aleena Salcido Referring Physician: Yuliya Godfrey Performed By: TROY
[2025-06-08 06:15] LABS: HCT - HEMATOCRIT 39.9 % (37.0-47.0); HGB - HEMOGLOBIN 13.2 g/dL (12.0-16.0); MEAN PLATELET VOLUME 9.6 fL (7.9-10.8); NRBC ABSOLUTE COUNT (AUTO) 0.00 x10^3/uL; NUCLEATED RED BLOOD CELLS AUTO 0.0 /100WBC; PLT - PLATELET COUNT 194 10^3/uL (130-450); RED CELL DISTRIBUTION WIDTH 13.2 % (12.0-15.0)
[2025-06-08] MEDS: LEVOTHYROXINE 75 MCG TABLET PO SCH (06:20)
[2025-06-08 06:35] LABS: BUN - BLOOD UREA NITROGEN 19.0 mg/dL (6-20); CARBON DIOXIDE - CO2 24.0 mmol/L (21-32); CREATININE 0.7 mg/dL (0.6-1.3); GFR - MDRD 80.0 (>89)
--- NOTE | 2025-06-08 12:22 | PROVIDER PROGRESS NOTE ---
Subjective Prog Note Date Prog Note Date: 06/08/25 Subjective Subjective: She is sitting up in bed talking to her partner who is at bedside, and her son who is on the phone. She does want me to call daughter Jennifer today .([phone]). She continues to have the weakness in the right side and is having slight amount of swelling in her right hand today. Current Medications Current Medications Current Medications: Current Medications Generic Name Dose Route Start Last Admin Trade Name Freq PRN Reason Stop Dose Admin Acetaminophen 650 mg 06/07/25 00:08 Acetaminophen 325 Mg Tablet PO Q4HR PRN Pain 1 to 4, or Fever Albuterol 2.5 mg 06/07/25 16:24 06/08/25 08:44 Albuterol Neb 2.5 Mg/3 Ml INH 2.5 mg RTQ4H PRN Administration Wheezing Atorvastatin Calcium 80 mg 06/07/25 21:00 06/07/25 20:15 Atorvastatin 40 Mg Tablet PO 80 mg QPM SILVA Administration Heparin Sodium (Porcine) 5,000 unit 06/07/25 09:00 06/08/25 08:52 Heparin 5,000 Unit/Ml Vial SUBQ 5,000 unit BID SILVA Administration Labetalol HCl 10 mg 06/07/25 00:08 06/07/25 12:25 Labetalol 20 Mg/4 Ml Syringe IVP 10 mg Q6H PRN Administration SBP >220 Levothyroxine Sodium 75 mcg 06/07/25 09:02 06/08/25 06:20 Levothyroxine 75 Mcg Tablet PO 75 mcg 0700 SILVA Administration Losartan Potassium 50 mg 06/07/25 09:02 06/07/25 20:15 Losartan 50 Mg Tablet PO 50 mg 2000 SILVA Administration Metoprolol Succinate 50 mg 06/07/25 09:00 06/08/25 08:52 Metoprolol Succinate 50 Mg Tablet PO 50 mg BID SILVA Administration Nystatin 1 applic 06/07/25 09:00 06/08/25 08:52 Nystatin Powder 15 Gm TOP 1 applic BID SILVA Administration Ondansetron HCl 4 mg 06/07/25 00:08 Ondansetron Odt 4 Mg Tablet TL Q6HR PRN Nausea / Vomiting Patient Own Med ( 2 each 06/07/25 13:12 06/08/25 08:44 Budesonide- INH 2 each Formoterol 80/4.5) RTBID SILVA Administration Polyethylene Glycol 17 gm 06/07/25 21:00 06/08/25 08:52 Polyethylene Glycol 3350 17 Gm Packet PO 17 gm DAILY SILVA Administration Sodium Chloride 10 ml 06/07/25 00:08 Sodium Chloride Flush 0.9% 10 Ml Syringe IVP PRN PRN NEEDED PER PROVIDER ORDERS Sodium Chloride 10 ml 06/07/25 01:00 06/08/25 08:52 Sodium Chloride Flush 0.9% 10 Ml Syringe IVP 10 ml 0100,0900,1700 SILVA Administration Objective Vital Signs/Intake & Output Reviewed Vital Signs: Yes Vital Signs: Vital Signs x48h Temp Pulse Pulse Resp BP Pulse Ox 06/08/25 08:00 70 20 06/08/25 07:47 36.6 C 60 16 158/84 H 95 06/08/25 05:34 36.4 C L 55 L 20 144/83 H 97 Intake & Output: Intake & Output 06/05/25 06/06/25 06/07/25 06/08/25 23:59 23:59 23:59 23:59 Intake Total 2110 / 2110 360 / 360 Output Total 1450 / 1450 850 / 850 Balance 660 / 660 -490 / -490 Weight (kg) 73.6 kg 71 kg Objective General Appearance: positive No acute distress, Alert and Other (she is very loquacious and has an excellent memory. ) Eyes Bilateral: positive Normal inspection and Conjunctivae nml ENT: positive Other (slight flattening of the right nasolabial fold. ) Neck: positive Nml inspection Respiratory: positive No respiratory distress and Breath sounds nml Cardiovascular: positive Regular rate & rhythm and Other (telemetry strips do not show a fib. ) Abdomen: positive No distention Skin: positive Color nml Extremities: positive No pedal edema Neurologic/Psychiatric: positive Oriented x3, Sensation nml (right sided numbness. ) and Sensory loss (rUE and RLE); negative Motor nml (right sided weakness in RUE and RLE. she is antigravity on the RUE ,with significant drift, she is not antigrav on RLE (2/5)) Lab Results 06/08/25 05:37 06/08/25 05:37 Other Labs: Lab Results x24hrs 06/08/25 Range/Units 05:37 WBC 4.8 (4.8-10.8) x10^3/uL RBC 4.69 (4.20-5.40) 10^6/uL Hgb 13.2 (12.0-16.0) g/dL Hct 39.9 (37.0-47.0) % MCV 85.1 (81.0-99.0) fL MCH 28.1 (27.0-31.0) pg MCHC 33.1 (32.0-36.0) g/dL RDW 13.2 (12.0-15.0) % Plt Count 194 (130-450) 10^3/uL MPV 9.6 (7.9-10.8) fL Neut # (Auto) 2.9 (1.5-6.6) 10^3/uL Lymph # (Auto) 1.3 L (1.5-3.5) 10^3/uL [place] # (Auto) 0.4 (0.0-1.0) 10^3/uL Eos # (Auto) 0.1 (0.0-0.7) 10^3/uL Baso # (Auto) 0.0 (0.0-0.1) 10^3/uL Absolute Nucleated RBC 0.00 x10^3/uL Nucleated RBC % 0.0 /100WBC Sodium 136 (135-145) mmol/L Potassium 3.9 (3.5-4.5) mmol/L Chloride 105 (101-111) mmol/L Carbon Dioxide 24 (21-32) mmol/L Anion Gap 7.0 (6-13) BUN 19 (6-20) mg/dL Creatinine 0.7 (0.6-1.3) mg/dL Estimated GFR (MDRD) 80 L (>89) Glucose 126 H (74-104) mg/dL Calcium 8.9 (8.5-10.3) mg/dL TSH 4.78 (0.34-5.60) uIU/mL Assessment/Plan Problem List (1) Acute CVA (cerebrovascular accident): Impression: Persistent right sided weakness and dysarthria. She has started ASA, statin and I am starting Plavix. No arrhythmia on tele. Echo: not remarkable. bubble study neg, no valvular disease. MRI shows: Moderate size acute infarct in the left deep frontal white matter extending to the internal capsule. PT evaluation recommends IRF, as does speech. [facility] IRF accepting- transport tomorow. discussed with daughter Jennifer today to give update on progress of care. (2) Hypokalemia: Impression: resolved. Laboratory Tests 06/06/25 06/07/25 06/08/25 20:01 05:50 05:37 Potassium 3.6 3.3 L 3.9 (3) HTN (hypertension): Impression: Home medication of Losartan 50mg daily and metoprolol succinate 50mg BID have been restarted. Have allowed permissive HTN. She is back on home meds, BPs are spontaneously improving. Selected Entries 06/07/25 20:12 06/08/25 00:39 06/08/25 05:34 Pulse Rate [Brachial] 73 58 L 55 L Blood Pressure [Left Brachial artery] 165/95 H 144/83 H Blood Pressure [Right Brachial artery] 180/100 H 06/08/25 07:47 Pulse Rate [Brachial] 60 Blood Pressure [Left Brachial artery] 158/84 H Blood Pressure [Right Brachial artery] (4) COPD (chronic obstructive pulmonary disease): Impression: She is insistent that she take her own home inhalers. She states that she is allergic to other inhalers, anaphylaxis, and she is not sure which ones and why. discussed with pharmacist. Her lungs are clear, and she is not having any cough. (5) Hypothyroidism: Impression: synthroid 75mcg restarted. 2 06/08/25 05:37 TSH 4.78 Dispo: IRF at [facility] has accepted this patient. will plan on BLS transfer tomorrow, with her neuro defecits, she is not able to sit up to ride in a wheelchair van. This patient's diagnosis and treatment plan was discussed this AM with attending physician as a part of multi disciplinary rounding meeting. I have spent 45 minutes in the care of this patient today. This includes time [id number], review and ordering of diagnostic imaging and laboratory studies . Monitoring the patient's signs symptoms, evaluation of medication effectiveness and patient's response to treatment.
--- NOTE | 2025-06-08 16:35 | Discharge Summary ---
Discharge Summary Admit Date: 06/06/25 Discharge Date: 06/09/25 Discharging Provider: Aurelia Booth PA-C Primary Care Provider: Carlitos Giron MD Code Status: Attempt Resuscitation Discharge Facility Name: [facility] DIAGNOSES Discharge Diagnoses with Status of Each Condition: Acute CVA with right sided weakness Hypokalemia, resolved. Hypertension, chronic and controlled. COPD, chronic and controlled. Hypothyroidism, chronic and controlled. HPI History of Present Illness: Mrs. Murphy is a pleasant 85yoF with a history of copd, asthma, hypertension and hypothyroidism copd, asthma, hypertension and hypothyroidism. she presented to the ED with right sided weakness of her upper and lower extremity. She first noticed her symptoms the night prior to presentation. Her weakness progress until she was unable to write and she was dragging her right leg. She currently has no feeling on the affected side. she did not experience facialy droop or slurring of speech. In the Ed workup was negative. she was hypertensive with systolic blood pressure in the 200s. This visit was performed using telehealth tools, including phone and live-video. patient provided verbal consent to complete this telemedicine encounter. During the time my interview and evaluation, the patient was located at [facility] in the [facility], I was located in [place]. HOSPITAL COURSE Hospital Course: Admitted with onset of right upper and lower extremity weakness many hours prior to arrival. Also with some dysarthria and mild dysphagia, but able to compensate with strategies as recommended by ST, but will benefit from ongoing ST services. PT saw patient and also recommended ongoing treatment. No OT available at the facility. PAtient was observed on telemetry, no arrhythmia observed. She was started on Plavix and high dose statin for secondary stroke prevention. Please note, she was not previously on ASA, and we will not be starting that. Plavix only for secondary CVA prevention. Permissive HTN for the first 48h. home antihypertensives restarted. blood pressure controlled. ' otherwise this hospitalization, mild hypokalemia, treated and resolved. Chronic and stable COPD, home inhalers were restarted while here. No exacerbation. Hypothyroidism on Synthroid 75 mcg daily, TSH checked this admission 4.78. She has diabetes mellitus I have restarted her metformin 500 mg twice daily. I have sent hemoglobin A1c testing which is pending at the time of dc. Returned at 6.4% later this afternoon. 06/07/25 06/08/25 06/09/25 05:50 05:37 05:10 Glucose 139 H 126 H 131 H ALLERGIES Allergies Allergy/AdvReac Type Severity Reaction Status Date / Time chlorpromazine (From Allergy Mild Hives Verified 06/06/25 20:51 Thorazine) diazepam (From Valium) Allergy Mild Unknown Verified 06/06/25 20:51 haloperidol (From Haldol) Allergy Mild Unknown Verified 06/06/25 20:51 ciprofloxacin Allergy Unknown Verified 06/06/25 20:51 levofloxacin (From Levaquin) Allergy Unknown Verified 06/06/25 20:51 lisinopril Allergy Unknown Verified 06/06/25 20:51 naproxen Allergy unknown Verified 06/06/25 20:51 propoxyphene (From Darvon) Allergy unknown Verified 06/06/25 20:51 thioridazine (From Mellaril) Allergy unknown Verified 06/06/25 20:51 MEDICATIONS Ambulatory Orders Medication Instructions Recorded Confirmed levothyroxine 75 mcg tablet 75 mcg PO DAILY 08/19/1408/07/24 losartan 50 mg tablet 50 mg PO DAILY 08/19/1405/25 albuterol sulfate 90 mcg/actuation 2 inh inhalation .q 4-h PRN 06/07/25 06/07/25 aerosol inhaler shortness of breath or wheez ing budesonide-formoterol HFA 80 2 puff inhalation BID 06/07/25 mcg-4.5 mcg/actuation aerosol inhaler chlorthalidone 25 mg tablet 25 mg PO DAILY 06/07/25 metformin 500 mg tablet 500 mg PO BID 06/07/2506/07 metoprolol tartrate 50 mg tablet 50 mg PO BID 06/07/25 06/07/25 (Lopressor) acetaminophen 325 mg tablet 650 mg (2 x 325 mg) PO Q4H R PRN 06/08/25 Pain 1 to 4, or Fever #30 tabs albuterol sulfate 2.5 mg/3 mL 2.5 mg (3 mL) inhalation RTQ4H PRN 06/08/25 (0.083 %) solution for nebulization Wheezing #75 mL atorvastatin 40 mg tablet 80 mg (2 x 40 mg) PO QPM #60 tabs 06/08/25 clopidogrel 75 mg tablet 75 mg PO DAILY #30 tabs 05/25 12/16 metoprolol succinate 50 mg 50 mg PO BID #60 tabs 06/09 tablet,extended release 24 hr PHYSICAL EXAM AT DISCHARGE Vital Signs: Vital Signs x48h Temp Pulse Resp BP Pulse Ox 06/09/25 14:00 36.7 C 66 20 164/84 H 96 Physical Exam Other/Comments: General Appearance: positive No acute distress, Alert and Other (she is very loquacious and has an excellent memory. ) Eyes Bilateral: positive Normal inspection and Conjunctivae nml ENT: positive Other (slight flattening of the right nasolabial fold. dysarthria ) Neck: positive Nml inspection Respiratory: positive No respiratory distress and Breath sounds nml Cardiovascular: positive Regular rate & rhythm and Other (telemetry strips do not show a fib. ) Abdomen: positive No distention Skin: positive Color nml Extremities: positive No pedal edema Neurologic/Psychiatric: positive Oriented x3, Sensation nml (right sided numbness. ) and Sensory loss (rUE and RLE); negative Motor nml (right sided weakness in RUE and RLE. she is antigravity on the RUE ,with significant drift, she is not antigrav on RLE (2/)) LABS 06/09/25 05:10 06/09/25 05:10 DIAGNOSTIC IMAGING Diagnostic Imaging Results Comments: EKG- sinus rhythm Telemetry monitoring- sinus rhythm Echocardiogram: There is mild asymmetric septal hypertrophy. Global left ventricular systolic function is normal. The calculated ejection fraction, as determined by the biplane method of disks, is 64%. The right ventricle is normal in size and function. Saline contrast Bubble study is negative with/with out Valsalva, for Atrial septal shunt. No concerning cardiac valve disease is noted. CXR: no acute cardiopulmonary process Head CT : no acute intracranial abnormality CTA head and neck: No significant intracranial arterial abnormalities are seen. No hemodynamically significant stenosis can be seen within the arteries of the neck. If there is persistent high clinical concern for acute cerebral infarction, further evaluation with MRI can be considered. MRI Brain: Moderate size acute infarct in the left deep frontal white matter extending to the internal capsule. No acute hemorrhage. FOLLOW UP Follow Up: PCP Carlitos Giron, on dc from IRF. TIME SPENT Time Spent in Discharge (Minutes): 45 Discharge Plan Discharge Patient Disposition: 62 IRF DC/Xfer Condition: Stable Prescriptions: New atorvastatin 40 mg Tablet 80 mg PO QPM Qty: 60 0RF acetaminophen 325 mg Tablet 650 mg PO Q4HR PRN (Reason: Pain 1 to 4, or Fever) Qty: 30 0RF albuterol sulfate 2.5 mg /3 mL (0.083 %) Solution For Nebulization 2.5 mg inhalation RTQ4H PRN (Reason: Wheezing) Qty: 75 0RF clopidogrel 75 mg Tablet 75 mg PO DAILY Qty: 30 0RF metoprolol succinate 50 mg Tablet Extended Release 24 Hr 50 mg PO BID Qty: 60 0RF Continued levothyroxine 75 MCG tablet 75 mcg PO DAILY losartan 50 MG tablet 50 mg PO DAILY budesonide-formoterol 80-4.5 mcg/actuation HFA aerosol inhaler 2 puff INHALATION BID albuterol sulfate 90 mcg/actuation HFA aerosol inhaler 2 inh INHALATION .q4-h PRN (Reason: shortness of breath or wheezing) chlorthalidone 25 mg tablet 25 mg PO DAILY metformin 500 mg tablet 500 mg PO BID metoprolol tartrate [Lopressor] 50 mg tablet 50 mg PO BID Discontinued simvastatin [Zocor] 40 mg tablet 40 mg PO QPM Activity Restrictions: Activity as Tolerated Diet: Regular Health Concerns: dmitted with onset of right upper and lower extremity weakness many hours prior to arrival. Also with some dysarthria and mild dysphagia, but able to compensate with strategies as recommended by ST, but will benefit from ongoing ST services. PT saw patient and also recommended ongoing treatment. No OT available at the facility. PAtient was observed on telemetry, no arrhythmia observed. She was started on ASA, Plavix and high dose statin for secondary stroke prevention. Permissive HTN for the first 48h. home antihypertensives restarted. blood pressure controlled. ' otherwise this hospitalization, mild hypokalemia, treated and resolved. Chronic and stable COPD, home inhalers were restarted while here. No exacerbation. Hypothyroidism on Synthroid 75 mcg daily, TSH checked this admission 4.78. She has diabetes mellitus I have restarted her metformin 500 mg twice daily. I have sent hemoglobin A1c testing which is pending at this time.Her fasting blood sugars are mildly elevated. 06/07/25 06/08/25 06/09/25 05:50 05:37 05:10 Glucose 139 H 126 H 131 H Print Language: Divehi Patient Instructions: Dysarthria: Improving Speech Follow-up Care: Carlitos Giron MD [Primary Care Provider, Family Practice] Report called to and time (if no answer, doc. time of each call attempted): 1 3:05 Vitals documented within 30 minutes of discharge?: Yes (BP 164/84 HR 66 O2 96%RA RR 20 pain 0/10)
[2025-06-09 05:51] LABS: HCT - HEMATOCRIT 44.0 % (37.0-47.0); HGB - HEMOGLOBIN 13.9 g/dL (12.0-16.0); MEAN PLATELET VOLUME 9.6 fL (7.9-10.8); NRBC ABSOLUTE COUNT (AUTO) 0.00 x10^3/uL; NUCLEATED RED BLOOD CELLS AUTO 0.0 /100WBC; PLT - PLATELET COUNT 213 10^3/uL (130-450); RED CELL DISTRIBUTION WIDTH 13.1 % (12.0-15.0)
[2025-06-09 06:12] LABS: BUN - BLOOD UREA NITROGEN 16.0 mg/dL (6-20); CARBON DIOXIDE - CO2 26.0 mmol/L (21-32); CREATININE 0.7 mg/dL (0.6-1.3); GFR - MDRD 80.0 (>89)
[2025-06-09] MEDS: CLOPIDOGREL 75 MG TABLET PO SCH (09:08)
[2025-06-09 11:32] LABS: ESTIMATED AVERAGE GLUCOSE 137 mg/dL (70-100); HEMOGLOBIN A1c% 6.4 % (4.27-6.07)
[2025-06-09 14:16] VITALS: BP 164/84; TEMP 98.1; O2SAT 96
== END 2025-06-09 14:10 | DRG 65 ==
LOC: MS2 20:44 → ED 20:44 → MS2 23:56
PROVIDERS: ADMIT Hospitalist; ATTEND Physician Assistant Medical
DX: E03.9 Hypothyroidism, unspecified; E11.9 Type 2 diabetes mellitus without complications; J44.9 Chronic obstructive pulmonary disease, unspecified; E87.6 Hypokalemia; G81.91 Hemiplegia, unspecified affecting right dominant side; R13.10 Dysphagia, unspecified; R29.702 NIHSS score 2; Z79.84 Long term (current) use of oral hypoglycemic drugs; I44.0 Atrioventricular block, first degree; I10 Essential (primary) hypertension; I63.9 Cerebral infarction, unspecified; R47.1 Dysarthria and anarthria